=== PATIENT | female | born 1975 | race Caucasian/White ===

== ENCOUNTER 2017-06-16 13:56 | Observation (INO) ==
[2017-06-16 15:08] LABS: Basophils # 0.1 10*3/uL (0.0-0.2); Basophils % 0.7 % (0.0-0.8); Eosinophils # 0.1 10*3/uL (0.0-0.87); Eosinophils % 1.3 % (0.00-10.9); Hematocrit 44.2 VOL% (35.7-47.0); Hemoglobin 15.4 GM/DL (12.0-16.0); Immature Granulocytes % 0.5 %; Immature Granulocytes Absolute 0.05 #; Lymphocytes # 2.2 10*3/uL (1.4-4.0); Mean Corpuscular HGB Conc 34.8 GM/DL (32-36); Mean Corpuscular Hemoglobin 31 PG (27-34); Mean Corpuscular Volume 87.5 FL (87-102); Mean Platelet Volume 9.5 FL (9.6-12.0); Monocytes # 0.6 10*3/uL (0.11-0.8); Monocytes % 5.9 % (1.7-12.7); Neutrophils # 6.9 10*3/uL (1.4-7.4); Neutrophils % 69.6 % (38.7-73.9); Platelet Count 394 T/CUMM (130-400); Red Blood Count 5.05 MC/CUMM (3.8-5.5); Red Cell Distribution Width 12.7 % (9.3-17.3)
[2017-06-16 15:18] LABS: PT Patient Result 10.4 SECS
[2017-06-16 15:35] LABS: Alanine Aminotransferase 21 U/L (13-56); Albumin 3.3 G/DL (3.4-5.0); Alkaline Phosphatase 100 U/L (45-117); Aspartate Amino Transferase 8 U/L (0-37); Bilirubin,Total < 0.39 MG/DL (0.2-1.0); Blood Urea Nitrogen 10 MG/DL (7-18); Calcium 9.3 MG/DL (8.5-10.1); Glucose 89 MG/DL (74-106); Osmolality,Calculated 272.7 MOS/KG (273-304); Potassium 4.4 MMOL/L (3.5-5.1); Sodium 138 MMOL/L (136-145); Total Protein 7.1 G/DL (6.4-8.3); Troponin I Only < 0.015 NG/ML (0.00-0.045)
[2017-06-16 16:59] LABS: Free T4 (Free Thyroxine) 1.15 NG/DL (0.76-1.46); Thyroid Stimulating Hormone 3.63 uIU/ml (0.358-3.74)
[2017-06-16 17:30] LABS: Apearance,Urine CLEAR (Clear); Bilirubin,Urine Negative (Negative); Blood, Urine Negative (Negative); Glucose,Urine (UA) Negative (Negative); Ketones,Urine Negative (Negative); Mucus,Urine Occasional /LPF (Occasional); Nitrite,Urine Negative (Negative); Protein,Urine Negative; RBC,Urine 1 /HPF (0-4); Squamous Epithelial Cell,Urine Occasional /HPF (0-10); Urine Color Straw (Yellow); Urine Specific Gravity 1.009 (1.001-1.035); Urine Urobilinogen < 2.0 EU/DL (0.2-1.0); WBC,Urine 1 /HPF (0-6)
[2017-06-16 17:37] LABS: Barbiturates Screen,Urine Negative (Negative); Benzodiazepines Screen,Urine Negative (Negative); Cannabinoid Screen,Urine Negative (Negative); Opiate Screen,Urine Positive (Negative); Phencyclidine Screen,Urine Negative (Negative)
[2017-06-16] MEDS ORDERED: ALBUTEROL 2.5 MG/3 ML NEB RESP TX PRN (18:36)
[2017-06-16] MEDS ORDERED: ZALEPLON 5 MG CAPSULE PO PRN (18:38)
[2017-06-16] MEDS ORDERED: diphenhydrAMINE CAP 25 MG CAPSULE PO PRN (18:38)
[2017-06-16] MEDS ORDERED: guaiFENesin/DM ER 600-30 MG TABLET PO PRN (18:38)
[2017-06-16] MEDS ORDERED: NICOTINE 21 MG/24 HR PATCH TRANSDERM PRN (18:38)
[2017-06-16] MEDS ORDERED: ONDANSETRON 4 MG/2 ML VIAL IV PRN (18:38)
[2017-06-16] MEDS ORDERED: LEVOFLOXACIN INJ 750 MG in PREMIX 1 EACH IV SCH (19:00)
[2017-06-16 20:26] LABS: Risk Ratio 2.71
[2017-06-16] MEDS: ALBUTEROL/IPRATROPIUM 3 ML NEB RESP TX SCH (20:32)
[2017-06-16] MEDS: methylPREDNISolone SOD SUC 40 MG/1 ML VIAL IV SCH (21:03)
[2017-06-16] MEDS: ENOXAPARIN 40 MG/0.4 ML SYRINGE SUBCUT SCH (21:03)
[2017-06-16] MEDS: SODIUM CHLORIDE 0.9% 1,000 ML IV SCH (21:04)
[2017-06-16] MEDS: DOCUSATE SODIUM 100 MG CAPSULE PO SCH ×2 (21:04→21:12)
[2017-06-16 22:35] LABS: HIV Antigen/Antibody Result Nonreactive (Nonreactive)
[2017-06-17] MEDS: ALBUTEROL/IPRATROPIUM 3 ML NEB RESP TX SCH ×4 (00:06→19:07)
[2017-06-17] MEDS: methylPREDNISolone SOD SUC 40 MG/1 ML VIAL IV SCH ×3 (02:14→18:15)
[2017-06-17 06:54] LABS: Basophils % 0.1 % (0.0-0.8); Eosinophils % 0.1 % (0.00-10.9); Hematocrit 42.3 VOL% (35.7-47.0); Hemoglobin 14.4 GM/DL (12.0-16.0); Immature Granulocytes % 0.7 %; Immature Granulocytes Absolute 0.07 #; Lymphocytes # 0.4 10*3/uL (1.4-4.0); Mean Corpuscular Hemoglobin 30 PG (27-34); Mean Corpuscular Volume 88.1 FL (87-102); Mean Platelet Volume 9.8 FL (9.6-12.0); Monocytes % 0.3 % (1.7-12.7); Neutrophils # 9.7 10*3/uL (1.4-7.4); Neutrophils % 94.8 % (38.7-73.9); Platelet Count 361 T/CUMM (130-400); Red Cell Distribution Width 12.4 % (9.3-17.3); White Blood Count 10.2 T/CUMM (4-12)
[2017-06-17 07:17] LABS: Band Neutrophils 1 % (0-10); Hypochromasia Slight; Lymphocytes 6 % (20-55); Microcytosis Slight; Platelet Estimate Normal; Segmented Neutrophils 91 % (50-85); Total Cells Counted 100
[2017-06-17 07:33] LABS: Albumin 3.1 G/DL (3.4-5.0); Bilirubin,Total 0.6 MG/DL (0.2-1.0); Magnesium 1.8 MG/DL (1.8-2.4); Osmolality,Calculated 275.8 MOS/KG (273-304); Phosphorous 2.2 MG/DL (2.5-4.9); Potassium 4.5 MMOL/L (3.5-5.1); Total Protein 6.7 G/DL (6.4-8.3)
[2017-06-17] MEDS: DOCUSATE SODIUM 100 MG CAPSULE PO SCH ×3 (08:26→21:16)
[2017-06-17] MEDS: PANTOPRAZOLE 40 MG TABLET PO SCH (08:26)
[2017-06-17] MEDS ORDERED: MYRBETRIQ (Mirabegron) 50 MG PO SCH (09:00)
[2017-06-17] MEDS: SODIUM CHLORIDE 0.9% 1,000 ML IV SCH (09:07)
[2017-06-17] MEDS: ACETAMINOPHEN 325 MG TABLET PO PRN ×2 (10:15→17:25)
[2017-06-17] MEDS: ENOXAPARIN 40 MG/0.4 ML SYRINGE SUBCUT SCH (18:15)
[2017-06-17] MEDS ORDERED: AMINOPHYLLINE 250 MG in SODIUM CHLORIDE 0.9% 100 ML IV ONE (19:57)
[2017-06-17] MEDS ORDERED: ALBUTEROL/IPRATROPIUM 3 ML NEB RESP TX PRN (20:02)
[2017-06-17] MEDS: MONTELUKAST 10 MG TABLET PO SCH (21:16)
[2017-06-17] MEDS ORDERED: AMINOPHYLLINE 500 MG in SODIUM CHLORIDE 0.9% 480 ML IV SCH (23:16)
[2017-06-18] MEDS: ALBUTEROL/IPRATROPIUM 3 ML NEB RESP TX SCH ×2 (00:54→07:27)
[2017-06-18] MEDS: methylPREDNISolone SOD SUC 40 MG/1 ML VIAL IV SCH (02:44)
[2017-06-18 04:25] LABS: Allen Test Positive
[2017-06-18 04:26] LABS: ABG Base Excess -0.3 MMOL/L (-2.5-2.5); ABG HCO3 23.9 MMOL/L (20-26); ABG Oxygen Saturation 98.4 % (95-100); ABG PCO2 38.1 MM HG (35-48); ABG PH 7.416 (7.35-7.45); ABG PO2 123.2 MM HG (80-95); ABG TCO2 25.1 MMOL/L (23-27)
[2017-06-18] MEDS: DOCUSATE SODIUM 100 MG CAPSULE PO SCH (08:22)
[2017-06-18] MEDS: PANTOPRAZOLE 40 MG TABLET PO SCH (08:27)
[2017-06-18] MEDS: MONTELUKAST 10 MG TABLET PO SCH (08:27)
[2017-06-18] MEDS ORDERED: BUDESONIDE/FORMOTEROL 160-4.5 INHALER 6 GM INH SCH (10:30)
[2017-06-18] MEDS ORDERED: predniSONE 20 MG TABLET PO SCH (10:30)
[2017-06-18] MEDS ORDERED: THEOPHYLLINE ER (24 HR) 400 MG CAPSULE PO SCH (11:00)
[2017-06-18 11:50] VITALS: BP 132/74
[2017-06-18 13:31] LABS: Procalcitonin, S < 0.10 ng/mL (<=0.15)
[2017-06-23] MEDS ORDERED: predniSONE 10 MG TABLET PO SCH (09:00)
[2017-07-09] MEDS ORDERED: predniSONE 10 MG TABLET PO SCH (09:00)
== END 2017-06-18 13:35 | disposition home or self-care (01) ==
LOC: N.ED 13:56 → SUATTDRO 18:47 → INTOOBSV 18:47 → N.EDINP 18:57 → N.5E 19:05
PROVIDERS: ADMIT Family Medicine; ATTEND Internal Medicine Cardiovascular Disease